=== PATIENT | male | born 1980 | race Caucasian/White ===

== ENCOUNTER 2023-03-06 11:53 | Emergency (ER) | payer OTHER, SELFPAY ==
--- NOTE | ~2023-03-06 | XR_ITS ---
EXAMINATION: XR WRIST, RIGHT XR WRIST, LEFT CLINICAL INFORMATION: Wrist pain, fall COMPARISON: None available. TECHNIQUE: Four views of the each wrist. FINDINGS: RIGHT WRIST: The bones and soft tissues are normal. No fracture. Alignment is anatomic. Joint spaces are maintained. No erosions or soft tissue calcifications. There is a punctate radiopaque density in the superficial soft tissues of the first digit adjacent to the base of the proximal phalanx. LEFT WRIST: The bones and soft tissues are normal. No fracture. Alignment is anatomic. Joint spaces are maintained. No erosions or soft tissue calcifications. XR/XR hand wrist LT IMPRESSION: 1. Punctate radiopaque density in the superficial soft tissues of the first digit of the right hand. 2. No acute fractures.
--- NOTE | ~2023-03-06 | XR_ITS ---
EXAMINATION: XR WRIST, RIGHT XR WRIST, LEFT CLINICAL INFORMATION: Wrist pain, fall COMPARISON: None available. TECHNIQUE: Four views of the each wrist. FINDINGS: RIGHT WRIST: The bones and soft tissues are normal. No fracture. Alignment is anatomic. Joint spaces are maintained. No erosions or soft tissue calcifications. There is a punctate radiopaque density in the superficial soft tissues of the first digit adjacent to the base of the proximal phalanx. LEFT WRIST: The bones and soft tissues are normal. No fracture. Alignment is anatomic. Joint spaces are maintained. No erosions or soft tissue calcifications. XR/XR hand wrist RT IMPRESSION: 1. Punctate radiopaque density in the superficial soft tissues of the first digit of the right hand. 2. No acute fractures.
[2023-03-06 12:03] VITALS: BP 107/74; PULSE 86; RESP 18; TEMP 36.6; O2SAT 98; BMI 38.1
--- NOTE | 2023-03-06 12:07 | ED_ITS ---
HPI - General Adult General Chief complaint: Extremity Injury, Upper Stated complaint: Wrist inj Time Seen by Provider: 03/06/23 12:10 Source: patient Mode of arrival: ambulatory Limitations: no limitations History of Present Illness HPI narrative: Patient is a 42 year old assigned male at with no reported medical history presenting to the emergency department today with bilateral wrist pain. Patient states that he was playing basketball yesterday when he fell and injured both wrists. Patient denies any head strike or loss of consciousness. Patient denies any dizziness, lightheadedness, abdominal pain, nausea, vomiting, fever, chills, blurry vision, double vision, loss of vision, chest pain, difficulty breathing, shortness of breath, back pain, night sweats, pain with urination, increased urinary frequency, increased urinary urgency, blood in his urine or stool, syncope or a near syncopal episode, bowel incontinence, bladder incontinence, bowel retention, bladder retention, or any other complaints at this time. Onset (ago): day(s) (1) Location: left, right and upper extremity Radiation: non-radiation Severity: mild Severity scale (1-10): 2 Quality: aching and dull Pain Consistency: constant Relieving factors: none Exacerbating factors: none Associated symptoms: denies other symptoms Treatments prior to arrival: none Related Data Allergies Allergy/AdvReac Type Severity Reaction Status Date / Time penicillin V Allergy Unknown Unknown Verified 03/06/23 12:03 Review of Systems Constitutional: Constitutional: Reports no additional constitutional complaints, Denies chills, Denies fever(s) and Denies night sweats Eyes: Eyes: Reports no additional eye complaints, Denies blurry vision, Denies change in vision, Denies diplopia, Denies eye discharge, Denies loss of vision and Denies eye pain ENT: Denies dizziness Cardiovascular: Cardiovascular: Reports no additional cardiovascular complaints, Denies chest pain, Denies lightheadedness, Denies Loss of Consciousness and Denies dyspnea Respiratory: Respiratory: Reports no additional respiratory complaints and Denies dyspnea Gastrointestinal: Gastrointestinal: Reports no additional gastrointestinal complaints, Denies abdominal pain, Denies melena, Denies hematochezia, Denies change in bowel habits and Denies change in stool character Genitourinary: Genitourinary: Reports no additional male genitourinary complaints, Denies hematuria, Denies oliguria, Denies difficulty urinating, Denies dysuria, Denies urinary frequency, Denies urinary hesitancy, Denies urinary incontinence and Denies urinary urgency Musculoskeletal: Musculoskeletal: Reports no additional musculoskeletal complaints, Denies numbness and Denies tingling Comments: bilateral wrist pain Neurologic: Denies dizziness, Denies loss of vision, Denies numbness and Denies tingling Psychiatric: Psychiatric: Reports no additional psychiatric complaints Endocrine: Endocrine: Reports no additional endocrine complaints Hematologic/Lymphatic: Hematologic/Lymphatic: Reports no additional hematologic/lymphatic complaints Allergic/Immunologic: Allergic/Immunologic: Reports no additional allergic/im munologic complaints [facility] Past Medical History Attestation statement: The following information was validated with the patient. Source: old records reviewed and nursing notes reviewed Social History Social History Advance Directives: No Advance Directives Information Provided: Yes Physical Exam ED Vital Signs: Vital Signs - 24 hr 03/06/23 12:03 Temperature 98 F Pulse Rate 86 Respiratory Rate 18 Blood Pressure 107/74 Pulse Oximetry 98 Oxygen Delivery Method Room Air BMI result Body Mass Index 38.1 Const General: cooperative, no acute distress, alert and awake Nutritional Appearance: well nourished Orientation/consciousness: patient oriented x3 Limitations: no limitations HENMT Head: Yes normal to inspection and Yes atraumatic Ears: hearing grossly normal bilaterally and external ears normal General nose exam: Normal external nose present, no nasal discharge noted and no epistaxis Face and sinus: Yes normal facial exam, No abrasion and No laceration Mouth: Normal oral and palatal mucosa present, no drooling and no muffled voice Eyes General: appearance normal, both eyes and all related structures Periorbital: periorbital findings normal Eyelids: Yes eyelids normal Conjunctivae: conjunctivae normal Pupils: Equal, round and reactive pupils present EOM: EOMs intact bilaterally Neck Neck: Yes normal visual inspection, Yes full ROM and Yes no lymphadenopathy Chest Chest palpation & inspection: normal inspection of the chest Resp Effort & Inspection: normal respiratory effort and able to speak in complete sentences GI Inspection: Yes normal to inspection Neuro General: patient oriented x3 and moves all extremities Cranial nerves: Yes Equal, round and reactive pupils present Cognition (Neuro): normal cognition Motor exam (neuro): 5/5 motor strength present throughout Sensory Exam: Normal double simultaneous stimulation for sensation Coordination: [id number] test normal Extrem Other: bilateral wrist pain with ROM but otheriwse normal General: Yes normal to inspection, Yes full ROM and Yes capillary refill normal Psych Appearance: grossly normal Mental Status: mental status grossly normal Affect: normal affect Attitude: cooperative Thought process: Normal thought process present Thought content: Normal thought content present Insight: Good insight present (Psych) Course Course Course Narrative: RME: Bilateral wrist pain since yesterday after falling while playing basketball. patient denies hitting head or loss of consciousness. patient treid to break fall by outstretching both hands. patietn has tendernes in both wrists. neuro/vascular/motor exam of bother upper extremities intact. xrays ordered Medical Decision Making Medical Decision Making MDM Narrative: Patient is a 42 year old assigned male at with no reported medical history presenting to the emergency department today with bilateral wrist pain. Patient's physical exam showed minimal pain with ROM of the wrists but is otherwise unremarkable. Patient's bilateral wrist x-rays showed no acute process. I explained my physical exam findings as well as all test results to the patient. I answered all questions asked by the patient. I stressed the importance of the patient taking his medication as prescribed. I stressed the importance of the patient following up with his primary care provider and if pain persists, an orthopedic provider. I stressed the importance of the patient returning to the emergency department immediately if his symptoms were to worsen or if he were to develop any dizziness, shortness of breath, difficulty breathing, chest pain, blurry vision, loss of vision, nausea, vomiting, abdominal pain, fever, chills, back pain, or any other complaints. Patient verbalized agreement and understanding with this treatment plan and discharge. Differential Diagnosis Differential Diagnoses: The differential diagnosis associated with the presentation includes bilateral wrist pain Independent Interpretation I performed an independent interpretation of an: Plain X-Ray Interpretation: My interpretation is in agreement with the radiologist's impression of these imaging studies. EXAMINATION: XR WRIST, RIGHT XR WRIST, LEFT CLINICAL INFORMATION: Wrist pain, fall? COMPARISON: None available.? TECHNIQUE: Four views of the each wrist. FINDINGS: RIGHT WRIST: The bones and soft tissues are normal. No fracture. Alignment is anatomic. Joint spaces are maintained. No erosions or soft tissue calcifications. There is a punctate radiopaque density in the superficial soft tissues of the first digit adjacent to the base of the proximal phalanx. LEFT WRIST: The bones and soft tissues are normal. No fracture. Alignment is anatomic. Joint spaces are maintained. No erosions or soft tissue calcifications.? XR/XR hand wrist RT IMPRESSION: 1.? Punctate radiopaque density in the superficial soft tissues of the first digit of the right hand. 2.? No acute fractures. Dictated By: Amarilis Abebe MD Signed By: Electronically signed by Amarilis Abebe MD 03/06/23 1237 Discharge Plan Discharge Clinical Impression: Sprain of wrist Patient Disposition: Home, Self-Care Instructions: Wrist Injury (ED) Additional Instructions: Follow up with your primary care provider and if pain persists >7 days, follow up with an orthopedic provider. Return to the emergency department immediately if your symptoms worsen or if you develop any dizziness, shortness of breath, difficulty breathing, chest pain, blurry vision, loss of vision, nausea, vomiting, abdominal pain, fever, chills, back pain, or any other complaints. Referrals: [facility] [place] [facility] [Provider Group] (If pain persists >7 days, call to establish and follow up with an orthopedic provider.) Roberto Menendez MD [Primary Care Provider] - Stand Alone Forms: Work/School Release Interventions: ED Discharge Assessment Last Done: 03/06/23 12:53 Discharge Date/Time: 03/06/23 12:53 Print Language: [place]
--- NOTE | 2023-03-06 12:24 | PC.NURSE ---
pt in xray, significant other at bedside
== END 2023-03-06 12:53 | disposition home or self-care (01) ==
PROVIDERS: Emergency Provider Emergency Medicine; PCP Pediatrics
DX: M25.532 Pain in left wrist (principal); M25.531 Pain in right wrist; Z79.899 Other long term (current) drug therapy
CPT/HCPCS: 73110; 73130; 99282; 99283

== ENCOUNTER 2024-03-01 22:12 | Emergency (ER) | payer OTHER, SELFPAY ==
--- NOTE | ~2024-03-01 | XR_ITS ---
EXAMINATION: XR FINGER, LEFT CLINICAL INFORMATION: Injury. Pain. COMPARISON: 03/06/2023 TECHNIQUE: Three views of the left second digit. FINDINGS: The bone mineralization is normal. The joint spaces are maintained. There appears to be soft tissue swelling along the proximal second digit. There is a 1.5 mm radiopaque structure just medial to the proximal aspect proximal phalanx first digit. XR/XR finger LT min 2V IMPRESSION: 1. Soft tissue swelling along the proximal second digit. 2. 1.5 mm radiopaque structure just medial to the proximal aspect proximal phalanx first digit. This was present on prior study.
[2024-03-01 23:42] VITALS: BP 134/82; PULSE 92; RESP 18; TEMP 36.1; O2SAT 99; BMI 36.3
[2024-03-02 02:03] VITALS: BP 139/84; PULSE 85; RESP 12; TEMP 36.6; O2SAT 96
--- NOTE | 2024-03-02 03:16 | ED.GENADULT ---
HPI - General Adult General Chief complaint: Wound/Laceration Stated complaint: finger lac Time Seen by Provider: 03/02/24 03:16 History of Present Illness HPI narrative: The patient is a 43-year-old male who is right-handed and who says he has no history of diabetes comes to the emergency room because of an injury to his left index finger. Says that he was using a sawz-all to cut a tree. He says after he cut through the branch the blade than struck his finger and caused several small lacerations to the ulnar aspect of the left index finger. Came to the emergency room for evaluation. Related Data Allergies Allergy/AdvReac Type Severity Reaction Status Date / Time penicillin V Allergy Unknown Unknown Verified 03/01/24 23:51 Review of Systems Review of Systems: Yes all other systems are reviewed and are negative [facility] Social History Social History Advance Directives: No Advance Directives Information Provided: Yes Physical Exam ED Vital Signs: Vital Signs - 24 hr 03/01/24 23:42 03/02/24 02:03 03/02/24 04:01 Temperature 97.0 F 97.9 F 97.9 F Pulse Rate 92 85 86 Respiratory Rate 18 12 18 Blood Pressure 134/82 139/84 140/76 H Pulse Oximetry 99 96 100 Oxygen Delivery Method Room Air Room Air Room Air BMI result Body Mass Index 36.3 Const Other: The patient is a robust 43-year-old who was awake and alert in no distress. HENMT Other: Face is symmetrical, mucous membranes moist Eyes Other: Pupils are round equal, conjunctivae clear Resp Effort & Inspection: normal respiratory effort Skin Other: The patient has some small superficial lacerations to the ulnar side of the left index finger. They are approximately 4 or 5 of these lacerations. Neuro Other: Intact sensation to the fingertip Extrem Other: The patient has superficial skin injuries to the ulnar side of the left index finger. He is able to flex the joints of the finger normally. Medications Administered Discontinued Medications Generic Name Dose Route Start Last Admin Trade Name Freq PRN Reason Stop Dose Admin Bacitracin 1 appl 03/02/24 03:27 03/02/24 03:50 Bacitracin Oint 0.9 Gm Packet TOPICAL 03/02/24 03:28 1 appl ONCE ONE Administration Protocol Cephalexin HCl 1,000 mg 05/25/24 03:27 03/02/24 03:50 Cephalexin 500 Mg Capsule PO 03/02/24 03:28 1,000 mg ONCE ONE Administration Diphtheria/Tetanus/Acell Pertussis 0.5 ml 03/02/24 03:27 03/02/24 03:50 Diphth,Pertus(Acell),Tet Adult 0.5 Ml Syringe IM 03/02/24 03:28 0.5 ml .ONCE ONE Administration Medical Decision Making Medical Decision Making [facility] Narrative: The patient has several small skin injuries on the ulnar side of the left index finger. He is right-hand dominant. I do not think these injuries are sufficiently deep or large to require suturing. Dating his tetanus status. The wounds were cleaned and dressed with bacitracin and a dressing. He was given a single dose of cephalexin 1000 mg as infection prophylaxis. I anticipate this injury feel well. He should stay in touch with his regular doctor or return to the ER if significantly worse. Discharge Plan Discharge Clinical Impression: Superficial laceration of finger Patient Disposition: Home, Self-Care Instructions: Laceration Without Closure (ED) Additional Instructions: I think the wounds you have on your left index finger are small enough that sutures are not necessary. Tetanus shot today. You were also given a single dose of an antibiotic as infection prophylaxis. Please keep the injury clean and dry and covered with a Band-Aid for the next several days. Change the Band-Aid at least twice a day. Use bacitracin with Band-Aid changes. My expectation is that this injury should heal well on its own over the next several days. Please contact your regular doctor if any concerns or return to the emergency room if obviously worse. Referrals: Roberto Menendez MD [Primary Care Provider] - (finger injury) Interventions: ED Discharge Assessment Last Done: 03/02/24 04:01 Discharge Date/Time: 03/02/24 04:10 Print Language: Kazakh
[2024-03-02] MEDS: cephALEXin 500 MG CAPSULE 1000 MG PO (03:50)
[2024-03-02] MEDS: Bacitracin Oint 0.9 GM PACKET 1 APPL TOPICAL (03:50)
[2024-03-02] MEDS: Diphth,Pertus(ACell),Tet Adult 0.5 ML SYRINGE IM (03:50)
--- NOTE | 2024-03-02 04:00 | PC.NURSE ---
at bedside. Wound cleaned/dressed. Pt medicated per DEC. Provided with DC paperwork.
[2024-03-02 04:01] VITALS: BP 140/76; PULSE 86; RESP 18; TEMP 36.6; O2SAT 100
== END 2024-03-02 04:10 | disposition home or self-care (01) ==
PROVIDERS: Emergency Provider Emergency Medicine; PCP Pediatrics
DX: S61.211A Laceration without foreign body of left index finger without damage to nail, initial encounter (principal); W29.3XXA Contact with powered garden and outdoor hand tools and machinery, initial encounter; Y93.H9 Activity, other involving exterior property and land maintenance, building and construction; Y92.007 Garden or yard of unspecified non-institutional (private) residence as the place of occurrence of the external cause; Y99.9 Unspecified external cause status; Z23 Encounter for immunization
CPT/HCPCS: 73140; 90471; 90715; 99283; 99284